=== PATIENT | female | born 1945 | race Caucasian/White ===

== ENCOUNTER 2017-05-27 07:00 | Inpatient (IN) | payer OTHER ==
[~2017-05-27] VITALS: Ht 149.9 cm; Wt 65.3 kg
[2017-05-27] MEDS ORDERED: METOPROLOL SUCC25 MG PO (08:15)
[2017-05-27] MEDS ORDERED: MAXZIDE PO (08:16)
[2017-05-27] MEDS ORDERED: AVAPRO75 MG PO (08:17)
[2017-05-27] MEDS ORDERED: TAPAZOLE10 MG PO (08:17)
[2017-06-02] MEDS ORDERED: CLONAZEPAM1 MG PO (11:46)
[2017-06-02] MEDS ORDERED: PERCOCET 5-3251 EACH PO (11:46)
[2017-06-02] MEDS ORDERED: COLACE100 MG PO (11:46)
== END 2017-06-03 14:42 | disposition home or self-care (01) | DRG 472 ==
LOC: O/R 06-02 05:15 → PED 06-02 05:15 → SURH 06-02 07:00 → PED 06-02 10:37
PROVIDERS: Orthopaedic Surgery Orthopaedic Surgery of the Spine
PROC: 0RG20A0 Fusion of 2 or more Cervical Vertebral Joints with Interbody Fusion Device, Anterior Approach, Anterior Column, Open Approach (ICD-10-PCS; 2017-06-02)
PROC: 0RT30ZZ Resection of Cervical Vertebral Disc, Open Approach (ICD-10-PCS; principal; 2017-06-02 07:00)
DX: M50.021 Cervical disc disorder at C4-C5 level with myelopathy (principal); M47.12 Other spondylosis with myelopathy, cervical region; I10 Essential (primary) hypertension; E11.9 Type 2 diabetes mellitus without complications; E05.80 Other thyrotoxicosis without thyrotoxic crisis or storm